=== PATIENT | female | born 1965 | race Caucasian/White ===

== ENCOUNTER 2018-06-13 11:49 | Emergency (ER) | payer OTHER ==
--- NOTE | 2018-06-13 13:01 | EDPHYS ---
Physician Documentation [facility] Name: Adela Stewart Age: 53 yrs Sex: Female : 1965 Arrival Date: 06/13/2018 Time: 11:52 Bed 15 Private MD: None, None ED Physician Benedict Story HPI: 06/13 12:57 This 53 yrs old Female presents to ER via Ambulatory with complaints of Toe kb Injury. Historical: - Allergies: 12:06 Bactrim; iw 12:06 Demerol; iw - PMHx: 12:06 Hypertension; Kidney stones; RA; iw - PSHx: 12:06 Appendectomy; ; Tubal ligation; Hysterectomy; Lithotripsy; Gastric Bypass; iw - Immunization history:: Adult Immunizations not up to date. - Social history:: Smoking status: Patient/guardian denies using tobacco. - Ebola Screening: : Patient negative for fever greater than or equal to 101.5 degrees Fahrenheit, and additional compatible Ebola Virus Disease symptoms Patient denies exposure to infectious person Patient denies travel to an Ebola-affected area in the 21 days before illness onset No symptoms or risks identified at this time. ROS: 12:53 Constitutional: Negative for fever, chills, and weight loss, Cardiovascular: Negative kb for chest pain, palpitations, and edema, Respiratory: Negative for shortness of breath, cough, wheezing, and pleuritic chest pain, Abdomen/GI: Negative for abdominal pain, nausea, vomiting, diarrhea, and constipation, Skin: Negative for injury, rash, and discoloration, Neuro: Negative for headache, weakness, numbness, tingling, and seizure. 12:53 MS/extremity: Positive for injury or acute deformity, ecchymosis, pain, swelling, tenderness, of the right first toe. Exam: 12:53 Constitutional: This is a well developed, well nourished patient who is awake, alert, kb and in no acute distress. Head/Face: Normocephalic, atraumatic. Chest/axilla: Normal chest wall appearance and motion. Nontender with no deformity. No lesions are appreciated. Cardiovascular: Regular rate and rhythm with a normal S1 and S2. No gallops, murmurs, or rubs. Normal PMI, no JVD. No pulse deficits. Respiratory: Lungs have equal breath sounds bilaterally, clear to auscultation and percussion. No rales, rhonchi or wheezes noted. No increased work of breathing, no retractions or nasal flaring. Abdomen/GI: Soft, non-tender, with normal bowel sounds. No distension or tympany. No guarding or rebound. No evidence of tenderness throughout. Neuro: Awake and alert, GCS 15, oriented to person, place, time, and situation. Cranial nerves II-XII grossly intact. Motor strength 5/5 in all extremities. Sensory grossly intact. Cerebellar exam normal. Normal gait. 12:53 Musculoskeletal/extremity: Extremities: grossly normal except: noted in the dorsum of right foot and right first toe: ecchymosis, pain, swelling, tenderness, ROM: no acute changes, Circulation is intact in all extremities. Sensation intact. Weight bearing: able to fully bear weight. Vital Signs: 12:06 BP 154 / 97; Pulse 107; Resp 16 S; Temp 98.2; Pulse Ox 98% on R/A; Weight 86.18 kg; iw Height 5 ft. 4 in. (162.56 cm); Pain 7/10; 13:23 BP 138 / 87; Pulse 91; Resp 18; Temp 97.9; Pulse Ox 99% on R/A; tw2 12:06 Body Mass Index 32.61 (86.18 kg, 162.56 cm) iw MDM: 11:57 Patient medically screened. kb 12:57 Data reviewed: vital signs, nurses notes. Data interpreted: Pulse oximetry: on room air kb is 98 %. Interpretation: normal. Counseling: I had a detailed discussion with the patient and/or guardian regarding: the historical points, exam findings, and any diagnostic results supporting the discharge/admit diagnosis, radiology results, the need for outpatient follow up, a orthopedic surgeon, to return to the emergency department if symptoms worsen or persist or if there are any questions or concerns that arise at home. 12:58 Test interpretation: by ED physician or midlevel provider: plain radiologic studies, yvonne nondisplaced fracture of proximal phalange. 06/13 11:59 Order name: Foot Right 3 View XRAY yvonne 06/13 13:00 Order name: Post-op shoe; Complete Time: 13:20 yvonne Administered Medications: 13:20 Drug: [place] 5 mg-325 mg 1 tabs Route: PO; tw2 13:20 Follow up: Response: No adverse reaction; Medication administered at discharge. tw2 Disposition: 15:29 Co-signature as Attending Physician, Benedict Story MD. rn Disposition: 06/13/18 13:00 Discharged to Home. Impression: Nondisplaced fracture of proximal phalanx of right great toe. - Condition is Stable. - Discharge Instructions: Toe Fracture, [id number]. - Work release form, Medication Reconciliation Form, Thank You Letter, Antibiotic Education, Prescription Opioid Use form. - Follow up: Private Physician; When: 2 - 3 days; Reason: Recheck today's complaints, Continuance of care, Re-evaluation by your physician. Follow up: Emergency Department; When: As needed; Reason: Worsening of condition. Follow up: Benedict Story MD; When: 2 - 3 days; Reason: Recheck today's complaints, Continuance of care, Re-evaluation by your physician. Signatures: Dispatcher [employer] EDMonique Layne, BOG WORKER-C BOG WORKER-Ckb Cammie Valadez RN RN iw Nieto, Roman, MD MD rn Wise, Tara, RN RN tw2 Corrections: (The following items were deleted from the chart) 13:24 13:00 06/13/2018 13:00 Discharged to Home. Impression: Nondisplaced fracture of tw2 proximal phalanx of right great toe. Condition is Stable. Forms are Medication Reconciliation Form, Thank You Letter, Antibiotic Education, Prescription Opioid Use. Follow up: Private Physician; When: 2 - 3 days; Reason: Recheck today's complaints, Continuance of care, Re-evaluation by your physician. Follow up: Emergency Department; When: As needed; Reason: Worsening of condition. Follow up: Dr. Benedict Story; When: 2 - 3 days; Reason: Recheck today's complaints, Continuance of care, Re-evaluation by your physician. kb
--- NOTE | 2018-06-13 13:01 | ER ---
Nurse's Notes [facility] Name: Adela Stewart Age: 53 yrs Sex: Female : 1965 Arrival Date: 06/13/2018 Time: 11:52 Bed 15 Private MD: None, None Diagnosis: Nondisplaced fracture of proximal phalanx of right great toe Presentation: 06/13 12:03 Presenting complaint: Patient states: tripped over extension cord yesterday, twisted iw her right great toe, bruising and swelling noted to toe. Transition of care: patient was not received from another setting of care. Onset of symptoms was June 12, 2018. Risk Assessment: Do you want to hurt yourself or someone else? Patient reports no desire to harm self or others. Initial Sepsis Screen: Does the patient meet any 2 criteria? No. Patient's initial sepsis screen is negative. Does the patient have a suspected source of infection? No. Patient's initial sepsis screen is negative. Care prior to arrival: None. 12:03 Method Of Arrival: Ambulatory iw 12:03 Acuity: JESSE 4 iw Historical: - Allergies: 12:06 Bactrim; iw 12:06 Demerol; iw - PMHx: 12:06 Hypertension; Kidney stones; RA; iw - PSHx: 12:06 Appendectomy; ; Tubal ligation; Hysterectomy; Lithotripsy; Gastric Bypass; iw - Immunization history:: Adult Immunizations not up to date. - Social history:: Smoking status: Patient/guardian denies using tobacco. - Ebola Screening: : Patient negative for fever greater than or equal to 101.5 degrees Fahrenheit, and additional compatible Ebola Virus Disease symptoms Patient denies exposure to infectious person Patient denies travel to an Ebola-affected area in the 21 days before illness onset No symptoms or risks identified at this time. Screenin:15 Abuse screen: Denies threats or abuse. Denies injuries from another. Nutritional ph screening: No deficits noted. Tuberculosis screening: No symptoms or risk factors identified. Fall Risk None identified. Assessment: 12:14 General: Appears in no apparent distress. comfortable, Behavior is calm, cooperative, ph appropriate for age. Pain: Complains of pain in right first toe. Neuro: Level of Consciousness is awake, alert, obeys commands, Oriented to person, place, time, situation. Cardiovascular: Capillary refill < 3 seconds in bilateral fingers toes Patient's skin is warm and dry. Pulses are palpable in right dorsalis pedis artery and left dorsalis pedis artery. Respiratory: Airway is patent Respiratory effort is even, unlabored, Respiratory pattern is regular, symmetrical. GI: No signs and/or symptoms were reported involving the gastrointestinal system. Derm: Skin is intact, is healthy with good turgor, Skin is pink, warm \T\ dry. Musculoskeletal: Circulation, motion, and sensation intact. Range of motion: intact in all extremities. Vital Signs: 12:06 BP 154 / 97; Pulse 107; Resp 16 S; Temp 98.2; Pulse Ox 98% on R/A; Weight 86.18 kg; iw Height 5 ft. 4 in. (162.56 cm); Pain 7/10; 13:23 BP 138 / 87; Pulse 91; Resp 18; Temp 97.9; Pulse Ox 99% on R/A; tw2 12:06 Body Mass Index 32.61 (86.18 kg, 162.56 cm) iw ED Course: 11:52 Patient arrived in ED. mr 11:53 None, None is Private Physician. mr 11:57 Monique Venegas, [facility] kb 11:57 Benedict Story MD is Attending Physician. kb 12:01 Gissell Clemens, RN is Primary Nurse. ph 12:04 Triage completed. iw 12:07 Arm band placed on. iw 12:16 Patient has correct armband on for positive identification. Bed in low position. Call ph light in reach. Side rails up X 1. 12:53 Foot Right 3 View XRAY In Process Unspecified. EDMS 13:00 Benedict Story MD is Referral Physician. kb 13:22 No provider procedures requiring assistance completed. Patient did not have IV access tw2 during this emergency room visit. Ortho shoe applied to right foot. Administered Medications: 13:20 Drug: [place] 5 mg-325 mg 1 tabs Route: PO; tw2 13:20 Follow up: Response: No adverse reaction; Medication administered at discharge. tw2 Outcome: 13:00 Discharge ordered by . kb 13:23 Discharged to home ambulatory. tw2 13:23 Condition: good 13:23 Discharge instructions given to patient, Instructed on discharge instructions, follow up and referral plans. Demonstrated understanding of instructions, follow-up care. 13:24 Patient left the ED. tw2 Signatures: Dispatcher [employer] EDMonique Layne, QUIQUE TALBOT-Adela Barba Irene, RN Gissell Langston RN RN Alyssa Sandoval RN RN tw2
[2018-06-13] MEDS ORDERED: HYDROCODONE/APAP 5/325 MG TAB ONE (13:24)
[2018-06-13 13:31] VITALS: BP 138/87; TEMP 97.9; O2SAT 99
--- NOTE | 2018-06-13 13:59 | RAD REPORT ---
EXAM DESCRIPTION: RAD - Foot Right 3 View - 06/13/2018 12:53 pm CLINICAL HISTORY: Trip and fall, foot pain COMPARISON: None. FINDINGS: No fracture, dislocation or periosteal reaction. IP joint space narrowing is present throu ghout the foot. First MTP joint space narrowing also present. No erosive component. Degenerative barakat ges are relatively prominent for the patient's age. Small plantar spur is present. There is large spu r at the Achilles attachment. No air or foreign body in the soft tissues. IMPRESSION: No fracture or acute bone finding. Advanced for age degenerative changes across the IP joints of the foot and the first MTP joint. Small plantar and large Achilles bone spurs.
== END 2018-06-13 13:24 | disposition home or self-care (01) ==
LOC: ER 11:49
DX: S92.414A Nondisplaced fracture of proximal phalanx of right great toe, initial encounter for closed fracture (principal); W01.0XXA Fall on same level from slipping, tripping and stumbling without subsequent striking against object, initial encounter; I10 Essential (primary) hypertension; M06.9 Rheumatoid arthritis, unspecified; Z88.1 Allergy status to other antibiotic agents; Z88.5 Allergy status to narcotic agent
CPT/HCPCS: 99283

== ENCOUNTER 2018-12-07 10:47 | Observation (INO) | payer OTHER ==
--- NOTE | 2018-12-07 11:12 | EDPHYS ---
Physician Documentation [facility] Name: Adela Stewart Age: 53 yrs Sex: Female : 1965 Arrival Date: 12/07/2018 Time: 10:48 Bed 7 Private MD: out of town, doctor ED Physician Jas Isaac HPI: 12/07 11:08 This 53 yrs old Female presents to ER via Unassigned with complaints of Chest jeffery Pain. 11:08 The patient or guardian reports chest pain that is located primarily in the substernal jeffery area, anterior chest wall, bilaterally. Onset: this morning. The pain radiates to the left arm, the left shoulder. Associated signs and symptoms: Pertinent positives: shortness of breath. The chest pain is described as a heaviness, a pressure. Modifying factors: The symptoms are alleviated by nothing. the symptoms are aggravated by nothing. Severity of pain: At its worst the pain was moderate in the emergency department the pain is unchanged. 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 - Social history:: Smoking status: Patient/guardian denies using tobacco. - Family history:: not pertinent. - Ebola Screening: : Patient negative for fever greater than or equal to 101.5 degrees Fahrenheit, and additional compatible Ebola Virus Disease symptoms Patient denies exposure to infectious person Patient denies travel to an Ebola-affected area in the 21 days before illness onset No symptoms or risks identified at this time. ROS: 11:08 Constitutional: Negative for fever, chills, and weight loss, Eyes: Negative for injury, jeffery pain, redness, and discharge, ENT: Negative for injury, pain, and discharge, Neck: Negative for injury, pain, and swelling, Respiratory: Negative for shortness of breath, cough, wheezing, and pleuritic chest pain, Abdomen/GI: Negative for abdominal pain, nausea, vomiting, diarrhea, and constipation, Back: Negative for injury and pain, : Negative for injury, bleeding, discharge, and swelling, MS/Extremity: Negative for injury and deformity, Skin: Negative for injury, rash, and discoloration, Neuro: Negative for headache, weakness, numbness, tingling, and seizure, Psych: Negative for depression, anxiety, suicide ideation, homicidal ideation, and hallucinations, Allergy/Immunology: Negative for hives, rash, and allergies, Endocrine: Negative for neck swelling, polydipsia, polyuria, polyphagia, and marked weight changes, Hematologic/Lymphatic: Negative for swollen nodes, abnormal bleeding, and unusual bruising. 11:08 Cardiovascular: Positive for chest pain, of the chest. Exam: 11:08 Constitutional: This is a well developed, well nourished patient who is awake, alert, jeffery and in no acute distress. Head/Face: Normocephalic, atraumatic. Eyes: Pupils equal round and reactive to light, extra-ocular motions intact. Lids and lashes normal. Conjunctiva and sclera are non-icteric and not injected. Cornea within normal limits. Periorbital areas with no swelling, redness, or edema. ENT: Nares patent. No nasal discharge, no septal abnormalities noted. Tympanic membranes are normal and external auditory canals are clear. Oropharynx with no redness, swelling, or masses, exudates, or evidence of obstruction, uvula midline. Mucous membranes moist. Neck: Trachea midline, no thyromegaly or masses palpated, and no cervical lymphadenopathy. Supple, full range of motion without nuchal rigidity, or vertebral point tenderness. No Meningismus. Chest/axilla: Normal chest wall appearance and motion. Nontender with no deformity. No lesions are appreciated. Cardiovascular: Regular rate and rhythm with a normal S1 and S2. No gallops, murmurs, or rubs. Normal PMI, no JVD. No pulse deficits. Respiratory: Lungs have equal breath sounds bilaterally, clear to auscultation and percussion. No rales, rhonchi or wheezes noted. No increased work of breathing, no retractions or nasal flaring. Abdomen/GI: Soft, non-tender, with normal bowel sounds. No distension or tympany. No guarding or rebound. No evidence of tenderness throughout. Back: No spinal tenderness. No costovertebral tenderness. Full range of motion. Skin: Warm, dry with normal turgor. Normal color with no rashes, no lesions, and no evidence of cellulitis. MS/ Extremity: Pulses equal, no cyanosis. Neurovascular intact. Full, normal range of motion. Neuro: Awake and alert, GCS 15, oriented to person, place, time, and situation. Cranial nerves II-XII grossly intact. Motor strength 5/5 in all extremities. Sensory grossly intact. Cerebellar exam normal. Normal gait. Psych: Awake, alert, with orientation to person, place and time. Behavior, mood, and affect are within normal limits. 11:08 Musculoskeletal/extremity: DVT Exam: No signs of deep vein thrombosis. no pain, no jeffery swelling, no tenderness, negative Homans' sign noted on exam, no appreciated bluish discoloration, no erythema, no increased warmth. Vital Signs: 11:11 BP 121 / 74; Pulse 78; Resp 18; Temp 98.2; Pulse Ox 100% on R/A; Weight 77.11 kg; iw Height 5 ft. 4 in. (162.56 cm); Pain 8/10; 12:30 BP 106 / 62; Pulse 74; Resp 21; Pulse Ox 99% ; ph 13:15 BP 133 / 76; Pulse 77; Resp 21; Pulse Ox 100% ; ph 14:30 BP 118 / 76; Pulse 68; Resp 18; Pulse Ox 99% on R/A; ph 15:30 BP 116 / 70; Pulse 65; Resp 16; Temp 97.8; Pulse Ox 100% on R/A; ph 11:11 Body Mass Index 29.18 (77.11 kg, 162.56 cm) iw MDM: 10:57 Patient medically screened. [facility] 11:10 Data reviewed: vital signs, nurses notes, lab test result(s), EKG, radiologic studies, [facility] CT scan, plain films. 12/07 11:07 Order name: Basic Metabolic Panel; Complete Time: 12:51 [facility] 12/07 11:07 Order name: CBC with Diff; Complete Time: 12:51 [facility] 12/07 11:07 Order name: LFT's; Complete Time: 12:51 [facility] 12/07 11:07 Order name: Magnesium; Complete Time: 12:51 [facility] 12/07 11:07 Order name: NT PRO-BNP; Complete Time: 12:51 [facility] 12/07 11:07 Order name: PT-INR; Complete Time: 12:51 [facility] 12/07 11:07 Order name: Troponin (emerg Dept Use Only); Complete Time: 12:51 [facility] 12/07 11:07 Order name: XRAY Chest (1 view); Complete Time: 11:40 [facility] 12/07 11:07 Order name: Lipase; Complete Time: 12:51 [facility] 12/07 11:07 Order name: Urine Culture [facility] 12/07 14:51 Order name: Urine Dipstick--Ancillary (enter results) 12/07 15:04 Order name: Urine Dipstick-Ancillary [facility] 12/07 11:07 Order name: EKG; Complete Time: 11:10 [facility] 12/07 11:07 Order name: Cardiac monitoring; Complete Time: 11:27 [facility] 12/07 11:07 Order name: EKG - Nurse/Tech; Complete Time: 11:26 [facility] 12/07 13:14 Order name: CT Aorta for Dissection [facility] 12/07 13:14 Order name: EKG; Complete Time: 13:14 12/07 13:54 Order name: CT [facility] 12/07 11:07 Order name: IV Saline Lock; Complete Time: 16:26 [facility] 12/07 11:07 Order name: Labs collected and sent; Complete Time: 16:26 [facility] 12/07 11:07 Order name: O2 Per Protocol; Complete Time: 11:27 [facility] 12/07 11:07 Order name: O2 Sat Monitoring; Complete Time: 11:27 [facility] 12/07 11:07 Order name: Urine Dipstick-Ancillary (obtain specimen); Complete Time: 12:15 [facility] Administered Medications: 11:56 CANCELLED (Duplicate Order): Xopenex 2.5 mg Inhalation once [facility] 11:56 CANCELLED (Duplicate Order): AtroVENT Aerosol 0.5 mg Inhalation once [facility] 12:10 Drug: Zofran 4 mg Route: IVP; Site: left antecubital; ph 12:30 Follow up: Response: No adverse reaction; Nausea is decreased ph 12:12 Drug: morphine 4 mg Route: IVP; Site: left antecubital; ph 12:30 Follow up: Response: No adverse reaction; Pain is decreased; RASS: Alert and Calm (0) ph 12:14 Drug: Aspirin Chewable Tablet 324 mg Route: PO; ph 14:42 Follow up: Response: No adverse reaction ph 16:22 Follow up: Response: No adverse reaction ph 12:15 Drug: Pepcid 20 mg Route: IVP; Site: left antecubital; ph 13:30 Follow up: Response: No adverse reaction ph 12:15 Drug: Lovenox 1 mg/kg {Note: 80 MG GIVEN.} Route: Sub-Q; Site: left lower abdomen; ph 12:30 Follow up: Response: No adverse reaction ph 13:21 Drug: morphine 4 mg {Note: Rass 1.} Route: IVP; Site: left antecubital; ph 14:00 Follow up: Response: No adverse reaction ph 16:22 Not Given (Hemodynamic Parameters): Lopressor (metoprolol TARTRATE) 50 mg PO once ph Disposition: 12/07/18 11:11 Hospitalization ordered by Purvi Rodriges for Observation. Preliminary diagnosis are Other chest pain, Dyspnea, Essential (primary) hypertension. - Bed requested for Telemetry/MedSurg (observation). - Status is Observation. ph - Condition is Stable. - Problem is new. - Symptoms have improved. UTI on Admission? No Signatures: Dispatcher [employer] EDIN Betty Dela Cruz RN RN dw Anderson, Corey, MD MD cha Williams, Irene, RN RN iw Hall, Patricia, RN RN ph Corrections: (The following items were deleted from the chart) 11:56 11:50 Xopenex 2.5 mg Inhalation once ordered. [facility] 11:56 11:50 AtroVENT Aerosol 0.5 mg Inhalation once ordered. [facility] 11:59 11:51 ABG Arterial Blood Gas ordered. [facility] EDIN 11:59 11:51 BiPap ([employer] Only)+[id number] ordered. [facility] EDIN 15:01 11:11 Hospitalization Ordered by Purvi Rodriges MD for Observation. Preliminary diagnosis dw is Other chest pain; Dyspnea; Essential (primary) hypertension. Bed requested for Telemetry/MedSurg (observation). Status is Observation. Condition is Stable. Problem is new. Symptoms have improved. UTI on Admission? No. jeffery 16:29 15:01 12/07/2018 11:11 Hospitalization Ordered by Purvi Rodriges MD for Observation. ph Preliminary diagnosis is Other chest pain; Dyspnea; Essential (primary) hypertension. Bed requested for Telemetry/MedSurg (observation). Status is Observation. Condition is Stable. Problem is new. Symptoms have improved. UTI on Admission? No.
--- NOTE | 2018-12-07 11:12 | ER ---
Nurse's Notes [facility] Name: Adela Stewart Age: 53 yrs Sex: Female : 1965 Arrival Date: 12/07/2018 Time: 10:48 Bed 7 Private MD: out of town, doctor Diagnosis: Other chest pain;Dyspnea;Essential (primary) hypertension Presentation: 12/07 11:07 Presenting complaint: Patient states: left sided chest pain, radiating to back and left iw arm started about 4 this morning, pain described as sharp, intermittent. Transition of care: patient was not received from another setting of care. Onset of symptoms was December 07, 2018. Risk Assessment: Do you want to hurt yourself or someone else? Patient reports no desire to harm self or others. Initial Sepsis Screen: Does the patient meet any 2 criteria? No. Patient's initial sepsis screen is negative. Does the patient have a suspected source of infection? No. Patient's initial sepsis screen is negative. Care prior to arrival: None. 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 - Social history:: Smoking status: Patient/guardian denies using tobacco. - Family history:: not pertinent. - Ebola Screening: : Patient negative for fever greater than or equal to 101.5 degrees Fahrenheit, and additional compatible Ebola Virus Disease symptoms Patient denies exposure to infectious person Patient denies travel to an Ebola-affected area in the 21 days before illness onset No symptoms or risks identified at this time. Screenin:24 Abuse screen: Denies threats or abuse. Denies injuries from another. Nutritional ph screening: No deficits noted. Tuberculosis screening: No symptoms or risk factors identified. Fall Risk None identified. Assessment: 11:15 General: Appears distressed, Behavior is anxious, Smells of Reports Denies. Pain: ph Complains of pain in left lateral anterior chest Pain began At 4am. Neuro: Level of Consciousness is awake, alert, obeys commands, Oriented to person, place, time, situation. Cardiovascular: Reports chest pain, Denies nausea, Capillary refill < 3 seconds Patient's skin is warm and dry. Rhythm is sinus rhythm Chest pain quality is sharp, is located in left anterior chest wall radiates to left Left lateral chest. Respiratory: Airway is patent Respiratory effort is even, unlabored, Respiratory pattern is regular, symmetrical. Derm: Skin is intact, is healthy with good turgor, Skin is pink, warm \T\ dry. Musculoskeletal: Circulation, motion, and sensation intact. Range of motion: intact in all extremities. 12:30 Reassessment: Patient appears in no apparent distress at this time. pt reports pain ph relieved by IV pain meds, VSS, awaiting lab results. 13:27 Reassessment: Patient appears in no apparent distress at this time. Patient and/or ph family updated on plan of care and expected duration. Pain level reassessed. Patient is alert, oriented x 3, equal unlabored respirations, skin warm/dry/pink. Pt reports that pain has increased, ERP notified, repeat EKG and additional pain medication (see MAR). 14:30 Reassessment: Patient appears in no apparent distress at this time. Patient and/or ph family updated on plan of care and expected duration. Pain level reassessed. Patient is alert, oriented x 3, equal unlabored respirations, skin warm/dry/pink. 15:30 Reassessment: Patient appears in no apparent distress at this time. Patient and/or ph family updated on plan of care and expected duration. Pain level reassessed. Patient is alert, oriented x 3, equal unlabored respirations, skin warm/dry/pink. 16:15 Reassessment: Patient appears in no apparent distress at this time. Patient and/or ph family updated on plan of care and expected duration. Pain level reassessed. Patient is alert, oriented x 3, equal unlabored respirations, skin warm/dry/pink. Report called to Zoila TRUJILLO. Vital Signs: 11:11 BP 121 / 74; Pulse 78; Resp 18; Temp 98.2; Pulse Ox 100% on R/A; Weight 77.11 kg; iw Height 5 ft. 4 in. (162.56 cm); Pain 8/10; 12:30 BP 106 / 62; Pulse 74; Resp 21; Pulse Ox 99% ; ph 13:15 BP 133 / 76; Pulse 77; Resp 21; Pulse Ox 100% ; ph 14:30 BP 118 / 76; Pulse 68; Resp 18; Pulse Ox 99% on R/A; ph 15:30 BP 116 / 70; Pulse 65; Resp 16; Temp 97.8; Pulse Ox 100% on R/A; ph 11:11 Body Mass Index 29.18 (77.11 kg, 162.56 cm) iw ED Course: 10:48 Patient arrived in ED. rg4 10:48 out of town, doctor is Private Physician. rg4 10:57 Jas Isaac MD is Attending Physician. jeffery 11:06 EKG done, by medical technologist prn. reviewed by Jas Isaac MD. at1 11:10 Triage completed. iw 11:10 Gissell Clemens RN is Primary Nurse. ph 11:10 Purvi Rodriges MD is Hospitalizing Provider. jeffery 11:24 Arm band placed on right wrist. ph 11:24 Patient has correct armband on for positive identification. Placed in gown. Bed in low ph position. Call light in reach. Side rails up X 1. court recording monitor on. Pulse ox on. NIBP on. Door closed. Noise minimized. Warm blanket given. 11:26 Patient maintains SpO2 saturation greater than 95% on room air. ph 11:29 XRAY Chest (1 view) In Process Unspecified. EDMS 13:23 EKG done, by medical technologist prn. reviewed by Jas Isaac MD. tc 16:20 No provider procedures requiring assistance completed. Patient admitted, IV remains in ph place. Administered Medications: 11:56 CANCELLED (Duplicate Order): Xopenex 2.5 mg Inhalation once jeffery 11:56 CANCELLED (Duplicate Order): AtroVENT Aerosol 0.5 mg Inhalation once jeffery 12:10 Drug: Zofran 4 mg Route: IVP; Site: left antecubital; ph 12:30 Follow up: Response: No adverse reaction; Nausea is decreased ph 12:12 Drug: morphine 4 mg Route: IVP; Site: left antecubital; ph 12:30 Follow up: Response: No adverse reaction; Pain is decreased; RASS: Alert and Calm (0) ph 12:14 Drug: Aspirin Chewable Tablet 324 mg Route: PO; ph 14:42 Follow up: Response: No adverse reaction ph 16:22 Follow up: Response: No adverse reaction ph 12:15 Drug: Pepcid 20 mg Route: IVP; Site: left antecubital; ph 13:30 Follow up: Response: No adverse reaction ph 12:15 Drug: Lovenox 1 mg/kg {Note: 80 MG GIVEN.} Route: Sub-Q; Site: left lower abdomen; ph 12:30 Follow up: Response: No adverse reaction ph 13:21 Drug: morphine 4 mg {Note: Rass 1.} Route: IVP; Site: left antecubital; ph 14:00 Follow up: Response: No adverse reaction ph 16:22 Not Given (Hemodynamic Parameters): Lopressor (metoprolol TARTRATE) 50 mg PO once ph Outcome: 11:11 Decision to Hospitalize by Provider. jeffery 16:29 Patient left the ED. ph 16:29 Admitted to Tele accompanied by tech, family with patient, via wheelchair, with chart. ph 16:29 Condition: stable 16:29 Instructed on the need for admit. Signatures: Dispatcher [employer] EDJas Abdi MD MD cha Williams, Irene, RN RN iw Alise Gamboa, rubber press operator EKG Tat1 Mary Matute, rubber press operator EKG Ttc Gissell Clemens RN RN ph Garcia, Rubi rg4 Corrections: (The following items were deleted from the chart) 11:13 11:11 BP 121 / 74; Pulse 78bpm; Resp 18bpm; Pulse Ox 100% RA; ph iw 13:27 13:21 morphine 4 mg IVP in left antecubital ph ph
[2018-12-07] MEDS ORDERED: METOPROLOL TAR 50 MG TAB ONE (11:20)
[2018-12-07] MEDS ORDERED: ENOXAPARIN 80 MG/0.8 ML SQ ONE (11:20)
[2018-12-07] MEDS ORDERED: MORPHINE 4 MG/ML SYR ONE ×3 (11:20→15:51)
[2018-12-07] MEDS ORDERED: ONDANSETRON 4 MG/2 ML VIAL ONE ×2 (11:20→16:02)
[2018-12-07] MEDS ORDERED: ASPIRIN 81 MG CHEWABLE TABLET ONE (11:20)
[2018-12-07] MEDS ORDERED: FAMOTIDINE 20 MG/2 ML VIAL IV ONE (11:21)
--- NOTE | 2018-12-07 11:30 | EKG ---
Test Date: 2018-12-07 Test Time: 10:58:22 Carpet Cleaning Technician: MCKINLEY MEASUREMENT RESULTS: Intervals: Rate: 80 CT: 120 QRSD: 74 QT: 384 QTc: 442 [place]: P: 45 CT: 120 QRS: 21 T: 53 INTERPRETIVE STATEMENTS: Normal sinus rhythm Normal ECG Compared to ECG 11/27/2014 13:12:24 No significant changes Electronically Signed On 12-07-18 11:29:22 CDT by Isaac Mendoza
--- NOTE | 2018-12-07 11:31 | RAD REPORT ---
EXAM DESCRIPTION: RAD - Chest Single View - 12/07/2018 11:26 am CLINICAL HISTORY: CHEST PAIN Chest pain. COMPARISON: CHEST SINGLE VIEW dated 11/27/2014 FINDINGS: Portable technique limits examination quality. The lungs are grossly clear. The heart is normal in size. No displaced fractures. IMPRESSION: No acute intrathoracic process suspected.
[2018-12-07 11:57] LABS: Absolute Lymphocytes (CBC) 1.2 K/uL (0.7-4.9); Basophils % 0.8 % (0-1.3); Lymphocytes % 22.4 % (15.3-44.8); MPV 9.6 fL (7.6-11.3); RBC Red Blood Cell Count 4.22 M/uL (3.86-4.86)
[2018-12-07 11:58] LABS: Protime INR 1.08
[2018-12-07 12:16] LABS: ALT/SGPT 28 U/L (12-78); AST/SGOT 27 U/L (15-37); Albumin 3.9 g/dL (3.4-5.0); Alkaline Phosphatase 156 U/L (45-117); BUN Blood Urea Nitrogen 11 mg/dL (7-18); Bicarbonate 26 mmol/L (21-32); Bilirubin Direct 0.2 mg/dL (0-0.2); Bilirubin Total 0.4 mg/dL (0.2-1.0); Glucose Level 89 mg/dL (74-106); Lipase 208 U/L (73-393); Magnesium 2.2 mg/dL (1.8-2.4); NT PRO-BNP 66 pg/mL (<125); Potassium 4.1 mmol/L (3.5-5.1); Protein, Total 7.2 g/dL (6.4-8.2); Sodium Level 142 mmol/L (136-145); Troponin (Emerg Dept Use Only) < 0.02 ng/mL (0.0-0.045)
--- NOTE | 2018-12-07 13:50 | RAD REPORT ---
EXAM DESCRIPTION: CT - Angio Aorta For Dissection - 12/07/2018 1:31 pm CLINICAL HISTORY: Dissection;PE COMPARISON: Chest films same date TECHNIQUE: Dynamically enhanced 3 mm thick images of the chest, abdomen, and upper pelvis were obtai mati during administration of approximately 150mL Isovue 370 IV contrast. Sagittal and coronal reconst ruction images were generated using MIP and reviewed. Exam utilizes a protocol to evaluate entire cou rse of the aorta. All CT scans are performed using dose optimization technique as appropriate and may include automated exposure control or mA/KV adjustment according to patient size. FINDINGS: Aorta is normal in diameter with no dissection or other acute aortic findings. Reconstruct ion images show no significant findings. Pulmonary arteries are well visualized. No pulmonary emboli present. No cardiomegaly, pericardial thi ckening or pericardial effusion. No mass or infiltrate in the lung parenchyma. No pleural thickening, pleural effusion or pneumothorax . No abnormal mediastinal or hilar mass or lymphadenopathy seen. No chest wall mass or abnormal axillar y lymphadenopathy. Celiac, SMA and renal arteries show no suspicious findings. Solid abdominal viscera and bowel show no significant findings. No mass or abnormal lymphadenopathy. No free air, free fluid or inflammatory stranding. No urinary bladder abnormality. Gallbladder is absent. No biliary tree dilatation. Renal cysts are present. Areas of renal cortical thinning present. IMPRESSION: Negative CT scan of the aorta for acute or significant finding. No pulmonary emboli. No acute chest finding seen. No acute abdominal or pelvic finding. No other significant findings on chest, abdomen and upper pelvis examination.
[2018-12-07 15:04] LABS: Urine Blood NEGATIVE (NEG); Urine Glucose NEGATIVE (NEG); Urine Protein NEGATIVE (NEG); Urine Specific Gravity 1.015 (1.005-1.030)
[2018-12-07 16:32] VITALS: BMI 30.9
[2018-12-07] MEDS ORDERED: MORPHINE 4 MG/ML SYR IV PRN (16:32)
[2018-12-07] MEDS ORDERED: NITROGLYCERIN 0.4 MG/TAB SL PRN (16:32)
[2018-12-07] MEDS: INSULIN -REGULAR HUMAN 50 UNIT/0.5 ML ML SQ SCH ×2 (16:32→21:00)
[2018-12-07] MEDS ORDERED: METOCLOPRAMIDE 10 MG/2mL INJ IV ONE (17:28)
--- NOTE | 2018-12-07 17:54 | P.HP ---
Certification for Inpatient Patient admitted to: Observation With expected LOS: <2 Midnights Practitioner: I am a practitioner with admitting privileges, knowledge of patient current condition, hospital course, and medical plan of care. Services: Services provided to patient in accordance with Admission requirements found in Title 42 Section 412.3 of the Code of Federal Regulations Patient History Date of Service: 12/07/18 Reason for admission: Chest pain History of Present Illness: This is a 63-year-old female with past medical history of hypertension, rheumatoid arthritis, gastric bypass surgery in who presents to the emergency room a chest pain. Per patient, she started having sharp, intermittent chest pain at 4 o'clock this morning that woke or up from sleep. He was left-sided chest pain that radiates to the back, between her shoulder blades. Described as a sharp pain that was worse with cough, movement of the arm or deep breathing. No alleviating factors. This pain was associated with some nausea. She denied any other shortness of breath, headache, dizziness, vision changes , lightheadedness, and diarrhea, GI or other complaints. this the pain was getting worse and not getting any better therefore she came to the ER. In the ER, blood pressure was 121/74, heart rate is 78, 100% on room air and respiratory rate of 18. Her BMI is 30.9. This her labs were unremarkable. Troponin was negative x1. EKG was in normal sinus rhythm. Chest x-ray was negative for any acute abnormalities. Chest CT was negative for dissection or PE or any other acute abnormalities. In the ER, she received aspirin, Lovenox, famotidine, right Plan, Toprol a and some IV fluids. At the time of my exam, she was alert oriented x3, in no acute distress and hemodynamically stable. She reported improved chest pain, but still there. Family history is pertinent for multiple cardiac events in father, who from a cardiac event. Also reports a heart attack In a brother and he at age 60. Allergies meperidine HCl [From Demerol] Adverse Reaction (Verified 11/26/14 12:25) Rash sulfamethoxazole [From Bactrim] Adverse Reaction (Verified 11/26/14 12:25) Rash trimethoprim [From Bactrim] Adverse Reaction (Verified 11/26/14 12:25) Rash Bactrim DS Allergy (Uncoded 12/01/14 15:05) Unknown Home medications list reviewed: Yes Home Medications: Amlodipine/Valsartan [Amlodipine-Valsartan 10-320 mg] 10 - 325 mg PO DAILY 11/26 Cyanocobalamin (Vitamin B-12) [Physicians Ez Use B-12] 1,000 mcg IJ SEECOM 11/26 Ergocalciferol (Vitamin D2) [Vitamin D 50,000 Unit Cap] 50,000 iu PO SEECOM Levocetirizine Dihydrochloride [Xyzal] 5 mg PO DAILY 11/26/14 Naproxen Sod/Diphenhydram HCl [Aleve Pm Caplet] 1 each PO BEDTIME 11/26/14 Naproxen Sodium [Aleve] 220 mg PO DAILY 11/26/14 Terbinafine HCl [Lamisil] 250 mg PO BID 11/26/14 Ciprofloxacin HCl [Cipro] 500 mg PO BID #10 tablet 11/29/14 Codeine/APAP [Tylenol W/Codeine #3 tab] 1 tab PO Q4H PRN #30 tab 11/29/14 Ondansetron HCl [Zofran] 4 mg PO Q6H PRN #10 tablet 11/29/14 - Past Medical/Surgical History Has patient received pneumonia vaccine in the past: No Diabetic: Yes -: Kidney Stones -: HTN -: DM - IDDM -: Bladder Infection -: UTI -: Back contusion -: Right Knee Contusion -: Appendectomy -: -: Tubal Ligation -: Hysterectomy -: Lithrotripsy -: Gastric Bypass - Social History Smoking Status: Never smoker Alcohol use: No CD- Drugs: No Caffeine use: Yes Place of Residence: Home Review of Systems 10-point ROS is otherwise unremarkable Physical Examination - Vital Signs Temperature: 98.2 F Blood Pressure: 133/76 Pulse: 77 Respirations: 21 - Physical Exam General: Alert, In no apparent distress, Oriented x3 HEENT: Atraumatic, PERRLA, Mucous membr. moist/pink, EOMI, Sclerae nonicteric Neck: Supple, 2+ carotid pulse no bruit, No LAD, Without JVD or thyroid abnormality Respiratory: Clear to auscultation bilaterally, Normal air movement Cardiovascular: Regular rate/rhythm, Normal S1 S2 Gastrointestinal: Normal bowel sounds, No tenderness Musculoskeletal: No tenderness Integumentary: No rashes Neurological: Normal gait, Normal speech, Normal strength at 5/5 x4 extr, Normal tone, Normal affect Lymphatics: No axilla or inguinal lymphadenopathy - Studies Laboratory Data (last 24 hrs) 12/07/18 11:40: PT 12.7 H, INR 1.08 12/07/18 11:40: WBC 5.5, Hgb 12.5, Hct 36.0, Plt Count 187 12/07/18 11:40: Sodium 142, Potassium 4.1, BUN 11, Creatinine 1.07, Glucose 89, Magnesium 2.2, Total Bilirubin 0.4, AST 27, ALT 28, Alkaline Phosphatase 156 H, Lipase 208 Assessment and Plan - Problems (Diagnosis) (1) Chest pain Current Visit: Yes Status: Acute Plan: Heart score:4, moderate -Chest pain guidelines: Aspirin, Plavix, statin, metoprolol, and Acei/ARB -Echo ordered, pending. -Stress test ordered, pending -will consult cardiology if needed. -Trend troponins. Troponin negative x1 -EKG normal sinus rhythm at this time. Will continue to monitor via tele Qualifiers: Chest pain type: unspecified Qualified Code(s): R07.9 - Chest pain, unspecified (2) Rheumatoid arthritis Current Visit: No Status: Chronic Plan: Chronic, will continue home medications. -The patient has been off of prednisone for about 6 months now. -She will continue outpatient follow up Qualifiers: Rheumatoid arthritis location: unspecified site Rheumatoid factor presence : unspecified presence Qualified Code(s): M06.9 - Rheumatoid arthritis, unspecified (3) History of diabetes mellitus, type II Current Visit: No Status: Chronic Plan: Patient with a history of diabetes mellitus, type 2. She has not been on any way diabetes medications Since her gastric bypass surgery. -Monitor glucose a.c. HS and mild sliding scale insulin as needed. (4) Hypertension Onset Date: 11/27/14 Current Visit: No Status: Chronic Plan: Stable, home medications and continue to monitor. Will adjust medications as needed. Qualifiers: Hypertension type: essential hypertension Qualified Code(s): I10 - Essential (primary) hypertension (5) H/O gastric bypass Current Visit: No Status: Chronic - Plan DVT prophylaxis:Aspirin/Plavix GI prophylaxis: Protonix Diet: Heart healthy, NPO after midnight Disposition: Pending cardiac workup and symptomatic improvement Discharge Plan: Home Plan to discharge in: 24 Hours - Advance Directives Does patient have a Living Will: No Does patient have a Durable POA for Healthcare: No Time Spent Managing Pts Care (In Minutes): 55
[2018-12-07] MEDS ORDERED: ATORVASTATIN 40 MG TAB PO SCH (21:00)
[2018-12-07] MEDS ORDERED: METOCLOPRAMIDE 10 MG/2mL INJ IV SCH (21:00)
[2018-12-07] MEDS: METOPROLOL TAR 25 MG TAB PO SCH (21:26)
[2018-12-08 04:43] LABS: Absolute Lymphocytes (CBC) 0.8 K/uL (0.7-4.9); Hematocrit 34.2 % (36.0-45.0); Lymphocytes % 11.4 % (15.3-44.8); MPV 9.7 fL (7.6-11.3); RBC Red Blood Cell Count 3.91 M/uL (3.86-4.86)
[2018-12-08 04:57] LABS: Potassium 4.7 mmol/L (3.5-5.1)
[2018-12-08] MEDS ORDERED: PANTOPRAZOLE 40MG TABLET PO SCH (06:30)
[2018-12-08] MEDS: INSULIN -REGULAR HUMAN 50 UNIT/0.5 ML ML SQ SCH ×3 (07:30→16:30)
[2018-12-08] MEDS ORDERED: REGADENOSON 0.4 MG/5 ML SYR IV ONE (07:58)
[2018-12-08 08:56] VITALS: O2SAT 95
[2018-12-08] MEDS ORDERED: CLOPIDOGREL 75 MG TABLET PO SCH (09:00)
[2018-12-08] MEDS ORDERED: ASPIRIN EC 81 MG TAB PO SCH (09:00)
[2018-12-08] MEDS: METOPROLOL TAR 25 MG TAB PO SCH (09:00)
--- NOTE | 2018-12-08 09:26 | EKG ---
Test Date: 2018-12-07 Test Time: 13:20:32 Product Safety Administrator: KASI MEASUREMENT RESULTS: Intervals: Rate: 69 [place]: 128 QRSD: 70 QT: 420 QTc: 450 [place]: P: 61 IL: 128 QRS: 40 T: 46 INTERPRETIVE STATEMENTS: Normal sinus rhythm Normal ECG Compared to ECG 12/07/2018 10:58:22 No significant changes Electronically Signed On 12-08-18 09:24:12 CDT by Shaji Loza
--- NOTE | 2018-12-08 10:25 | ECHO ---
HEIGHT: 5 ft 4 in WEIGHT: 180 lb 0 oz DATE OF STUDY: 12/08/[address]: Purvi Rodriges MD 2-DIMENSIONAL: YES M.MODE: YES DOPPLER: YES COLOR FLOW: YES TDS: NO PORTABLE: NO DEFINITY: NO BUBBLE STUDY: NO DIAGNOSIS: CHEST PAIN CARDIAC HISTORY: CATHERIZATION: NO SURGERY: NO PROSTHETIC VALVE: NO PACEMAKER: NO MEASUREMENTS (cm) DIASTOLIC (NORMALS) SYSTOLIC (NORMALS) IVSd 1.0 (0.6-1.2) LA Diam 3.6 (1.9-4.0) LVEF 66% LVIDd 5.0 (3.5-5.7) LVIDs 3.2 (2.0-3.5) %FS 36% LVPWd 1.1 (0.6-1.2) Ao Diam 2.9 (2.0-3.7) 2 DIMENSIONAL ASSESSMENT: RIGHT ATRIUM: NORMAL LEFT ATRIUM: NORMAL RIGHT VENTRICLE: NORMAL LEFT VENTRICLE: NORMAL TRICUSPID VALVE: NORMAL MITRAL VALVE: NORMAL PULMONIC VALVE: NORMAL AORTIC VALVE: NORMAL PERICARDIAL EFFUSION: NONE AORTIC ROOT: NORMAL LEFT VENTRICULAR WALL MOTION: NORMAL. DOPPLER/COLOR FLOW: PHYSIOLOGIC TRICUSPID REGURGITATION. NORMAL RIGHT SYSTOLIC PRESSURE. COMMENTS: NORMAL 2D ECHO WITH DOPPLER. TECHNOLOGIST: COURTNEY BARRERA
--- NOTE | 2018-12-08 10:36 | TREADPHA ---
DX: CHEST PAIN Date of Study: 12/08/18 Ht: 5 4 Wt: 180 lb 0 oz Consulting Physician: MOHIT MEDICATIONS: ASPIRIN, LIPITOR, PLAVIX, NOVOLIN-T, REGLAN, LOPRESSOR, NITROSTAT HISTORY: 53 YEAR OLD FEMALE, COMPLAINTS OF CHEST PAIN. HISTORY OF NON INSULIN DEPENDENT DIABETES MELLITUS. HYPERTENSION, KIDNEY STONES, NON-SMOKER, OCCASIONAL DRINKER. PHYSICIAL EXAMINATION: RESTING B.P.: 144/75 RESTING H.R.: 60 RESTING EKG: NORMAL PROTOCOL: LEXISCAN EXERCISE TIME: 3:30 B.P. AT PEAK STRESS: 132/76 IMPRESSION: LEXISCAN INJECTED, FOLLOWED BY CARDIOLITE PER PROTOCOL, SEE NUCLEAR MEDICINE REPORT. NO SUPRA VENTRICULAR TACHYCARDIA, VENTRICULAR TACHYCARDIA, PREMATURE ATRIAL COMPLEXES, PREMATURE VENTRICULAR COMPLEXES. PATIENT REPORTED CHEST PAIN 8/10 DURING PROCEDURE. NON DIAGNOSTIC EKG LEXISCAN STRESS TEST.
--- NOTE | 2018-12-08 10:37 | RAD REPORT ---
EXAM DESCRIPTION: NM - Rest Stress Cardiac Imaging - 12/08/2018 10:31 am CLINICAL HISTORY: chest pain Chest pain. COMPARISON: No comparisons TECHNIQUE: The patient was administered approximately 10mCi of Tc 99m Sestamibi prior to resting SPE CT imaging of the heart. The patient was then administered approximately 30 mCi of Tc 99m Sestamibi f ollowing exercise or pharmacologic stress. Multiplanar SPECT images were reviewed. FINDINGS: No stress induced ischemic defect is seen to suggest stress induced ischemia. No fixed def ect is seen to suggest hibernating myocardium or scarred myocardium. The end diastolic volume is 81 ml, the end systolic volume is 27 ml, and the ejection fraction is 67 %. IMPRESSION: No stress induced ischemia.
[2018-12-08] MEDS ORDERED: KETOROLAC 30 MG/ML INJ IV ONE (11:29)
--- NOTE | 2018-12-08 15:23 | P.SSS ---
Patient History Date of Service: 12/08/18 Reason for admission: Chest pain History of Present Illness: This is a 63-year-old female with past medical history of hypertension, rheumatoid arthritis, gastric bypass surgery in who presents to the emergency room a chest pain. Per patient, she started having sharp, intermittent chest pain at 4 o'clock this morning that woke or up from sleep. He was left-sided chest pain that radiates to the back, between her shoulder blades. Described as a sharp pain that was worse with cough, movement of the arm or deep breathing. No alleviating factors. This pain was associated with some nausea. She denied any other shortness of breath, headache, dizziness, vision changes , lightheadedness, and diarrhea, GI or other complaints. this the pain was getting worse and not getting any better therefore she came to the ER. In the ER, blood pressure was 121/74, heart rate is 78, 100% on room air and respiratory rate of 18. Her BMI is 30.9. This her labs were unremarkable. Troponin was negative x1. EKG was in normal sinus rhythm. Chest x-ray was negative for any acute abnormalities. Chest CT was negative for dissection or PE or any other acute abnormalities. In the ER, she received aspirin, Lovenox, famotidine, right Plan, Toprol a and some IV fluids. At the time of my exam, she was alert oriented x3, in no acute distress and hemodynamically stable. She reported improved chest pain, but still there. Family history is pertinent for multiple cardiac events in father, who from a cardiac event. Also reports a heart attack In a brother and he at age 60. Allergies meperidine HCl [From Demerol] Adverse Reaction (Verified 11/26/14 12:25) Rash sulfamethoxazole [From Bactrim] Adverse Reaction (Verified 11/26/14 12:25) Rash trimethoprim [From Bactrim] Adverse Reaction (Verified 11/26/14 12:25) Rash Bactrim DS Allergy (Uncoded 12/01/14 15:05) Unknown Home medications list reviewed: Yes Home Medications: Amlodipine Bes/Olmesartan Med [Amlodipine-Olmesartan 10-40 mg] 1 tab PO DAILY Ergocalciferol (Vitamin D2) [Vitamin D2] 1 cap PO SEECOM 12/07/18 Folic Acid 2 tab PO DAILY 12/07/18 Levocetirizine Dihydrochloride [Xyzal] 1 tab PO DAILY PRN 12/07/18 Meloxicam 1 tab PO BEDTIME 12/07/18 Methotrexate [Methotrexate*] 5 tab PO SEECOM 12/07/18 Tofacitinib Citrate [Xeljanz Xr] 1 tab PO BEDTIME 12/07/18 Codeine/APAP [Tylenol W/Codeine #3 tab] 1 tab PO Q6HP PRN #15 tab 12/08/18 Pantoprazole [Protonix Tab*] 40 mg PO DAILYAC #30 tab 12/08/18 - Past Medical/Surgical History Has patient received pneumonia vaccine in the past: No Diabetic: Yes -: Kidney Stones -: HTN -: DM - IDDM -: Bladder Infection -: UTI -: Back contusion -: Right Knee Contusion -: Appendectomy -: -: Tubal Ligation -: Hysterectomy -: Lithrotripsy -: Gastric Bypass - Social History Smoking Status: Never smoker Alcohol use: No CD- Drugs: No Caffeine use: Yes Place of Residence: Home Review of Systems 10-point ROS is otherwise unremarkable Physical Examination - Vital Signs Temperature: 98.1 F Blood Pressure: 119/69 Pulse: 50 Respirations: 19 Pulse Ox (%): 99 - Physical Exam General: Alert, In no apparent distress, Oriented x3 HEENT: Atraumatic, PERRLA, Mucous membr. moist/pink, EOMI, Sclerae nonicteric Neck: Supple, 2+ carotid pulse no bruit, No LAD, Without JVD or thyroid abnormality Respiratory: Clear to auscultation bilaterally, Normal air movement Cardiovascular: Regular rate/rhythm, Normal S1 S2 Gastrointestinal: Normal bowel sounds, No tenderness Musculoskeletal: No tenderness Integumentary: No rashes Neurological: Normal gait, Normal speech, Normal strength at 5/5 x4 extr, Normal tone, Normal affect Lymphatics: No axilla or inguinal lymphadenopathy - Diagnosis (Problem(s)) (1) Chest pain Current Visit: Yes Status: Acute Plan: ACS ruled out. -Echo 66% ejection fraction, normal -Stress test negative for stress-induced ischemia -Troponin negative x3 -EKG normal sinus rhythm at this time. 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 She does currently takes meloxicam at home. She was asked to follow up with the primary care physician in the next week and earlier if pain not improving. She is recommended to place warm compresses to the area for symptom relief. Qualifiers: Chest pain type: unspecified Qualified Code(s): R07.9 - Chest pain, unspecified (2) Rheumatoid arthritis Current Visit: No Status: Chronic Plan: Chronic, home medications continued. -The patient has been off of prednisone for about 6 months now. -She will continue outpatient follow up Qualifiers: Rheumatoid arthritis location: unspecified site Rheumatoid factor presence : unspecified presence Qualified Code(s): M06.9 - Rheumatoid arthritis, unspecified (3) History of diabetes mellitus, type II Current Visit: No Status: Chronic Plan: (4) Hypertension Onset Date: 11/27/14 Current Visit: No Status: Chronic Qualifiers: Hypertension type: essential hypertension Qualified Code(s): I10 - Essential (primary) hypertension (5) H/O gastric bypass Current Visit: No Status: Chronic - Disposition Discharge Date: 12/08/18 Disposition: ROUTINE DISCHARGE Condition: GOOD Patient Discharge Instructions: Please follow up with the primary care physician in 2-3 days. Please follow up with cardiology in 1-2 weeks. 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 Your echocardiogram shows ejection fraction 66%, normal. Your stress test was also negative. Your troponin levels were negative x3. Please return to the emergency room for worsening symptoms. Diet: AHA Activity: Ad lili Time Spent Managing Pts Care (In Minutes): 55
[2018-12-08 18:40] VITALS: BP 139/62; TEMP 97.7
== END 2018-12-08 17:10 | disposition home or self-care (01) ==
LOC: ER 10:47 → ERHOLD 12:39 → 2ND 16:08
PROVIDERS: ADMIT Family Medicine; ATTEND Family Medicine
DX: R07.9 Chest pain, unspecified (principal); E11.9 Type 2 diabetes mellitus without complications; I10 Essential (primary) hypertension; M06.9 Rheumatoid arthritis, unspecified; Z98.84 Bariatric surgery status
CPT/HCPCS: 93005 ×2; 93017; 93306; 87088; 85025 ×2; 87086; 80048 ×2; 36415; 83735; 85610; 80061; 82962 ×5; 80076; 81003; 84484 ×3; 83690; 83880; 71275; 74175; 71045; 78452; 96375; 96372; 96374; 99285; Q9967; J2765; J1650; J2785; J2405 ×2; A9500; G0378 ×3

== ENCOUNTER 2021-11-22 09:07 | Emergency (ER) | payer BC, OTHER ==
[2021-11-22 09:34] LABS: Urine Blood 1+ (Negative); Urine Glucose Negative (Negative); Urine Protein Trace (Negative)
[2021-11-22 09:55] LABS: Absolute Lymphocytes (CBC) 0.9 K/uL (0.7-4.9); Hematocrit 37.1 % (36.0-45.0); Lymphocytes % 10.7 % (15.3-44.8); MCV 69.7 fL (80-100); MPV 8.5 fL (7.6-11.3); RBC Red Blood Cell Count 5.32 M/uL (3.86-4.86)
[2021-11-22 09:59] LABS: Urine Bacteria 20-50 /HPF (<20); Urine Mucus 1+ /HPF (None Seen); Urine RBC <5 /HPF (None Seen)
[2021-11-22 10:33] LABS: Blood Morphology Comment NOTED (NOT SEEN); Platelet Estimate ADEQ
[2021-11-22 10:36] LABS: Bilirubin Total 0.6 mg/dL (0.2-1.0)
--- NOTE | 2021-11-22 10:49 | EDPHYS ---
Physician Documentation [facility] Name: Adela Stewart Age: 56 yrs Sex: Female : 1965 Arrival Date: 11/22/2021 Time: 09:11 Bed 2 Private MD: MISHA Physician Jas Isaac HPI: 11/22 09:27 This 56 yrs old Female presents to ER via Ambulatory with complaints of Back jl9 Pain x6 days. Denies any trauma or strain. Patient also c/o having an itchy spot on her head. . 09:27 The patient presents with pain that is acute, with no known mechanism of injury. The jl9 symptoms are located in the low back. Onset: The symptoms/episode began/occurred 6 day(s) ago. The pain does not radiate. Associated signs and symptoms: Pertinent negatives: abdominal pain, chest pain, constipation, dysuria. The problem was sustained from unknown cause. Modifying factors: The patient symptoms are alleviated by nothing, the patient symptoms are aggravated by nothing. Severity of symptoms: in the emergency department the symptoms a " 4" out of "10". RN LVN: 09:26 LMP N/A - Hysterectomy jl7 Historical: - Allergies: 09: Bactrim; jl7 09:26 Demerol; jl7 - Home Meds: :26 Methotrexate (Anti-Rheumatic) Oral daily [Active]; jl7 - PMHx: 09:26 Diabetes - NIDDM; Hypertension; Kidney stones; RA; jl7 - Immunization history:: Client reports having NOT received the Covid vaccine. - Social history:: Smoking status: Patient denies any tobacco usage or history of. ROS: 09:29 Constitutional: Negative for fever, chills, and weight loss, Eyes: Negative for injury, jl9 pain, redness, and discharge, ENT: Negative for injury, pain, and discharge, Neck: Negative for injury, pain, and swelling, Cardiovascular: Negative for chest pain, palpitations, and edema, Respiratory: Negative for shortness of breath, cough, wheezing, and pleuritic chest pain, Abdomen/GI: Negative for abdominal pain, nausea, vomiting, diarrhea, and constipation. 09:29 : Negative for injury, bleeding, discharge, and swelling, MS/Extremity: Negative for injury and deformity, Skin: Negative for injury, rash, and discoloration, Neuro: Negative for headache, weakness, numbness, tingling, and seizure, Psych: Negative for depression, anxiety, suicide ideation, homicidal ideation, and hallucinations, Allergy/Immunology: Negative for hives, rash, and allergies, Endocrine: Negative for neck swelling, polydipsia, polyuria, polyphagia, and marked weight changes, Hematologic/Lymphatic: Negative for swollen nodes, abnormal bleeding, and unusual bruising. 09:29 Back: Positive for pain with movement. Exam: 09:29 Constitutional: This is a well developed, well nourished patient who is awake, alert, jl9 and in no acute distress. Head/Face: Normocephalic, atraumatic. Eyes: Pupils equal round and reactive to light, extra-ocular motions intact. Lids and lashes normal. Conjunctiva and sclera are non-icteric and not injected. Cornea within normal limits. Periorbital areas with no swelling, redness, or edema. ENT: Mucous membranes moist. Neck: Trachea midline, no thyromegaly or masses palpated, and no cervical lymphadenopathy. Supple, full range of motion without nuchal rigidity, or vertebral point tenderness. No Meningismus. Chest/axilla: Normal chest wall appearance and motion. Nontender with no deformity. No lesions are appreciated. Cardiovascular: Regular rate and rhythm with a normal S1 and S2. No gallops, murmurs, or rubs. Normal PMI, no JVD. No pulse deficits. Respiratory: Lungs have equal breath sounds bilaterally, clear to auscultation and percussion. No rales, rhonchi or wheezes noted. No increased work of breathing, no retractions or nasal flaring. Abdomen/GI: Soft, non-tender, with normal bowel sounds. No distension or tympany. No guarding or rebound. No evidence of tenderness throughout. 09:29 Skin: Warm, dry with normal turgor. No evidence of cellulitis. 1x1cm area of redness/ rash on mid parietal area. MS/ Extremity: Pulses equal, no cyanosis. Neurovascular intact. Full, normal range of motion. Neuro: Awake and alert, GCS 15, oriented to person, place, time, and situation. Cranial nerves II-XII grossly intact. Motor strength 5/5 in all extremities. Sensory grossly intact. Cerebellar exam normal. Normal gait. Psych: Awake, alert, with orientation to person, place and time. Behavior, mood, and affect are within normal limits. 09:29 Back: pain, that is mild, ROM is normal, normal spinal alignment noted, CVA tenderness, is absent, vertebral tenderness, is not appreciated, muscle spasm, is not present. Vital Signs: 09:23 BP 158 / 86; Pulse 90; Resp 17; Temp 98.8; Pulse Ox 100% on R/A; Weight 77.11 kg; jl7 Height 5 ft. 4 in. (162.56 cm); 11:17 BP 147 / 86; Pulse 79; Resp 16; Temp 98; Pulse Ox 100% ; Pain 0/10; ko1 13:15 BP 144 / 87; Pulse 82; Resp 24; Temp 97.4; Pulse Ox 100% ; Pain 8/10; ko1 14:45 BP 141 / 87; Pulse 77; Resp 19; Pulse Ox 100% ; ko1 14:45 Pain 10/10; ko1 09:23 Body Mass Index 29.18 (77.11 kg, 162.56 cm) 7 MDM: 09:11 Patient medically screened. jl 09:30 Data reviewed: vital signs, nurses notes. 11/22 09:19 Order name: CBC with Diff; Complete Time: 10:46 [facility] 11/22 09:19 Order name: CMP; Complete Time: 10:56 [facility] 11/22 09:19 Order name: Lipase; Complete Time: 10:56 11/22 09:33 Order name: Urine Microscopic Only; Complete Time: 10:46 11/22 09:34 Order name: Urine Dipstick-Ancillary; Complete Time: 10:46 [facility] 11/22 10:17 Order name: Urine Culture [facility] 11/22 10:33 Order name: Manual Differential; Complete Time: 10:46 [facility] 11/22 12:11 Order name: CT Head Brain wo Cont; Complete Time: 13:02 11/22 13:12 Order name: BMP; Complete Time: 14:56 [facility] 11/22 09:19 Order name: IV Saline Lock; Complete Time: 09:41 11/22 09:19 Order name: Labs collected and sent; Complete Time: 09:41 11/22 09:19 Order name: Urine Dipstick-Ancillary (obtain specimen); Complete Time: 09:33 jl9 Administered Medications: 11:13 Drug: Potassium Effervescent Tablet 50 mEq Route: PO; ko1 11:15 CANCELLED (Physician Discretion): NS 0.45 % with KCl 20 mEq/L 1000 ml IV at 1000 ml/hr ko1 once 11:15 Drug: NS 0.9% with KCl 20 mEq/L 1000 ml Route: IV; Rate: calculated rate; Site: right ko1 antecubital; 12:17 Drug: Ondansetron 4 mg Route: IVP; Site: right antecubital; ko1 12:31 Drug: morphine 2 mg Route: IVP; Infused Over: 4 mins; Site: right antecubital; ko1 14:35 Drug: Ketorolac 30 mg Route: IVP; Site: right antecubital; ko1 14:35 Drug: Benadryl (diphenhydrAMINE) 25 mg Route: IVP; Site: right antecubital; ko1 14:35 Drug: Rocephin (cefTRIAXone) 1 grams Route: IV; Rate: bolus; Site: right antecubital; ko1 Disposition Summary: 11/22/21 14:58 Discharge Ordered Location: Home(11/22/21 14:58) jl9 Condition: Stable(11/22/21 14:58) jl9 Diagnosis - UTI/ Urinary tract infection, site not specified(11/22/21 14:58) jl9 Followup: jl9 - With: Private Physician - When: 1 - 2 days - Reason: Recheck today's complaints, Continuance of care, Re-evaluation by your physician Discharge Instructions: - Urinary Tract Infection, Adult, [id number] jl9 - Hypokalemia jl9 - Discharge Summary Sheet ko1 Forms: - Medication Reconciliation Form jl9 - Work release form ko1 - Thank You Letter jl9 - Antibiotic Education jl9 - Prescription Opioid Use jl9 Prescriptions: - Macrobid 100 mg Oral Capsule - take 1 capsule by ORAL route every 12 hours for 10 days; 20 capsule; Refills: jl9 0, Product Selection Permitted Signatures: Dispatcher [employer] Cliff Goff RN RN jl7 Mayo Wakefield jl9 Gracy Dunlap RN RN ko1 Corrections: (The following items were deleted from the chart) 10:47 09:29 Skin: Warm, dry with normal turgor. Normal color with no rashes, no lesions, and jl9 no evidence of cellulitis. MS/ Extremity: Pulses equal, no cyanosis. Neurovascular intact. Full, normal range of motion. Neuro: Awake and alert, GCS 15, oriented to person, place, time, and situation. Cranial nerves II-XII grossly intact. Motor strength 5/5 in all extremities. Sensory grossly intact. Cerebellar exam normal. Normal gait. Psych: Awake, alert, with orientation to person, place and time. Behavior, mood, and affect are within normal limits. jl9 10:55 10:48 Home jl9 jl9 10:55 10:48 Stable jl9 jl9 10:55 10:48 UTI/ Urinary tract infection, site not specified jl9 jl9 11:15 10:59 NS 0.45 % with KCl 20 mEq/L 1000 ml IV at 1000 ml/hr once ordered. jl9 ko1 12:03 10:47 Counseling: I had a detailed discussion with the patient and/or guardian jl9 regarding: the historical points, exam findings, and any diagnostic results supporting the discharge/admit diagnosis, lab results, the need for outpatient follow up, to return to the emergency department if symptoms worsen or persist or if there are any questions or concerns that arise at home, jl9
--- NOTE | 2021-11-22 10:49 | ER ---
Nurse's Notes [facility] Name: Adela Stewart Age: 56 yrs Sex: Female : 1965 Arrival Date: 11/22/2021 Time: 09:11 Bed 2 Private MD: Diagnosis: UTI/ Urinary tract infection, site not specified Presentation: 11/22 09:23 Chief complaint: Patient states: Right low back pain x 6 days and rash to scalp, left jl7 side of face and left eye x 4 days. Coronavirus screen: At this time, the client does not indicate any symptoms associated with coronavirus-19. Ebola Screen: No symptoms or risks identified at this time. Initial Sepsis Screen: Does the patient meet any 2 criteria? No. Patient's initial sepsis screen is negative. Does the patient have a suspected source of infection? No. Patient's initial sepsis screen is negative. Risk Assessment: Do you want to hurt yourself or someone else? Patient reports no desire to harm self or others. Onset of symptoms was November 16, 2021. Care prior to arrival: None. 09:23 Method Of Arrival: Ambulatory [facility] 09:23 Acuity: JESSE 3 jl7 Triage Assessment: 09:26 General: Appears in no apparent distress. uncomfortable, Behavior is calm, cooperative, jl7 appropriate for age. Pain: Complains of pain in right low back. Musculoskeletal: Swelling absent. [employer]CH[employer] ASSOC[employer]ATE: 09:26 LMP N/A - Hysterectomy jl7 Historical: - Allergies: 09:26 Bactrim; jl7 09:26 Demerol; jl7 - Home Meds: :26 Methotrexate (Anti-Rheumatic) Oral daily [Active]; jl7 - PMHx: 09:26 Diabetes - NIDDM; Hypertension; Kidney stones; RA; jl7 - Immunization history:: Client reports having NOT received the Covid vaccine. - Social history:: Smoking status: Patient denies any tobacco usage or history of. Screenin:04 Abuse screen: Denies threats or abuse. Denies injuries from another. Nutritional ko1 screening: No deficits noted. Tuberculosis screening: No symptoms or risk factors identified. Fall Risk None identified. Assessment: 10:04 Neuro: No deficits noted. ko1 12:37 Reassessment: pt transported to CT via stretcher. vg1 15:16 Neuro:. ko1 Vital Signs: 09:23 BP 158 / 86; Pulse 90; Resp 17; Temp 98.8; Pulse Ox 100% on R/A; Weight 77.11 kg; jl7 Height 5 ft. 4 in. (162.56 cm); 11:17 BP 147 / 86; Pulse 79; Resp 16; Temp 98; Pulse Ox 100% ; Pain 0/10; ko1 13:15 BP 144 / 87; Pulse 82; Resp 24; Temp 97.4; Pulse Ox 100% ; Pain 8/10; ko1 14:45 BP 141 / 87; Pulse 77; Resp 19; Pulse Ox 100% ; ko1 14:45 Pain 10/10; ko1 09:23 Body Mass Index 29.18 (77.11 kg, 162.56 cm) jl7 ED Course: 09:11 Patient arrived in ED. rg4 09:11 Mayo Wakefield is PHCP. jl9 09:11 Jas Isaac MD is Attending Physician. jl9 09:26 Triage completed. jl7 09:26 Arm band placed on right wrist. jl7 09:41 Gracy Dunlap, RN is Primary Nurse. ko1 09:41 Urine Microscopic Only Sent. ko1 10:04 Patient has correct armband on for positive identification. Bed in low position. Call ko1 light in reach. 10:04 No provider procedures requiring assistance completed. Inserted saline lock: 20 gauge ko1 in right antecubital area, using aseptic technique. 10:04 Initial lab(s) drawn, by ED staff, sent to lab. jl7 11:15 Client placed on continuous cardiac and pulse oximetry monitoring. NIBP monitoring jl7 applied. 12:48 CT Head Brain wo Cont In Process Unspecified. EDMS 14:31 BMP Sent. ko1 15:17 IV discontinued, intact, bleeding controlled, No redness/swelling at site. Pressure ko1 dressing applied. 15:17 No provider procedures requiring assistance completed. ko1 Administered Medications: 11:13 Drug: Potassium Effervescent Tablet 50 mEq Route: PO; ko1 11:15 CANCELLED (Physician Discretion): NS 0.45 % with KCl 20 mEq/L 1000 ml IV at 1000 ml/hr ko1 once 11:15 Drug: NS 0.9% with KCl 20 mEq/L 1000 ml Route: IV; Rate: calculated rate; Site: right ko1 antecubital; 12:17 Drug: Ondansetron 4 mg Route: IVP; Site: right antecubital; ko1 12:31 Drug: morphine 2 mg Route: IVP; Infused Over: 4 mins; Site: right antecubital; ko1 14:35 Drug: Ketorolac 30 mg Route: IVP; Site: right antecubital; ko1 14:35 Drug: Benadryl (diphenhydrAMINE) 25 mg Route: IVP; Site: right antecubital; ko1 14:35 Drug: Rocephin (cefTRIAXone) 1 grams Route: IV; Rate: bolus; Site: right antecubital; ko1 Medication: 10:04 VIS not applicable for this client. ko1 Outcome: 10:48 Discharge ordered by . marcos 14:58 Discharge ordered by . marcos 15:17 Discharged to home ambulatory. ko1 15:17 Condition: improved 15:17 Discharge instructions given to patient, family, Instructed on discharge instructions, follow up and referral plans. medication usage, Demonstrated understanding of instructions, follow-up care, medications, Prescriptions given X 1. 15:18 Patient left the ED. ko1 Signatures: Dispatcher [employer] EDMS Irene Clark Jahala, RN RN jl7 Odalys Clark RN RN Mayo Gaspar9 Gracy Dunlap RN RN ko1
[2021-11-22 10:55] LABS: Potassium 2.5 mmol/L (3.5-5.1)
[2021-11-22] MEDS ORDERED: NS KCL 20MEQ 1,000 ML IV ONE (11:11)
[2021-11-22] MEDS ORDERED: POTASSIUM 25 MEQ EFFERV TAB ONE (11:12)
[2021-11-22] MEDS ORDERED: MORPHINE 2 MG/ML SYR ONE (12:26)
[2021-11-22] MEDS ORDERED: ONDANSETRON 4 MG/2 ML VIAL ONE (12:26)
--- NOTE | 2021-11-22 13:01 | RAD REPORT ---
EXAM DESCRIPTION: CT - Head Brain Wo Cont - 11/22/2021 12:47 pm CLINICAL HISTORY: Headache COMPARISON: None. TECHNIQUE: Computed axial tomography of the head was obtained. IV contrast was not requested. All CT scans are performed using dose optimization technique as appropriate and may include automated exposure control or mA/KV adjustment according to patient size. FINDINGS: An intracranial bleed is not seen . The ventricles are normal in caliber. No significant hypodense areas within the brain visualized No extra-axial fluid collection is noted. Fluid within the sinuses/ mastoids is not seen. IMPRESSION: No acute intracranial abnormality is seen. If patient's symptoms persist MRI of the bra in would be recommended.
[2021-11-22] MEDS ORDERED: NA CHLORIDE 0.9% 100 ML ONE (14:44)
[2021-11-22] MEDS ORDERED: DIPHENHYDRAMINE 50 MG/ML VIAL ONE (14:44)
[2021-11-22] MEDS ORDERED: CEFTRIAXONE 1000 MG/VIAL ONE (14:44)
[2021-11-22] MEDS ORDERED: KETOROLAC 30 MG/ML INJ ONE (14:44)
[2021-11-22 14:55] LABS: Potassium 3.2 mmol/L (3.5-5.1)
[2021-11-22 16:11] VITALS: O2SAT 100
[2021-11-22 16:24] VITALS: TEMP 97.4
[2021-11-22 16:26] VITALS: BP 141/87
== END 2021-11-22 15:18 | disposition home or self-care (01) ==
LOC: ER 09:07
DX: N39.0 Urinary tract infection, site not specified (principal); I10 Essential (primary) hypertension; E11.9 Type 2 diabetes mellitus without complications; Z88.1 Allergy status to other antibiotic agents; Z88.5 Allergy status to narcotic agent
CPT/HCPCS: 87088; 85025; 87086; 80048; 36415; 83690; 80053; 70450; 96375; 96374; 99284; J1200; J2270; J2405; J3480; 81003; 81015